=== PATIENT | male | born 1965 | race Caucasian/White ===

== ENCOUNTER 2018-10-10 09:40 | Emergency (ER) | payer SELFPAY ==
[~2018-10-10] VITALS: Ht 165.1 cm; Wt 68.4 kg
[2018-10-10 09:47] VITALS: Ht 165.1 cm; Wt 68.4 kg
[2018-10-10] MEDS ORDERED: LIDOCAINE 1% (MPF) 5 ML VIAL INFIL ONE (10:30)
[2018-10-10] MEDS ORDERED: SULF1TAB31 PO (11:13)
[2018-10-10] MEDS ORDERED: CEPH-443 PO (11:14)
[2018-10-10] MEDS ORDERED: IBUP-1542 PO (11:14)
--- NOTE | 2018-10-10 11:15 | ERD ---
ER Documentation Chief Complaint Chief Complaint ABSCESS TO POSTERIOR NECK, DRAINING. IN INTAKE HIGH BP. HPI 53 year old patient reports abscess to back of his neck x 1 week. He reports it is located midline back of his neck. He states the abscess is painful and oozing with white purulent discharge. He states the pain is sharp 9/10 intensity and constant. He denies any previous hx of similar incidence. He reports feeling hot 2 days ago but never recorded a fever. He is asking for a I&D today. In addition, he has blood pressure of 215/111 in triage. He denies previously being diagnosed with HTN but states he does not have a PCP and never goes to a doctor. He reports smoking hx. He denies taking medicine on a daily basis. He denies CP, SOB, abd pain, or any other symptoms. ROS All systems reviewed and are negative except as per history of present illness. Medications Home Meds Active Scripts Chlorthalidone* (Chlorthalidone*) 25 Mg Tablet, 25 MG PO DAILY, #30 TAB Prov:JEANINE REIS PA-C 10/10/18 Ibuprofen* (Motrin*) 600 Mg Tab, 600 MG PO Q6H PRN for PAIN AND OR ELEVATED TEMP, #30 TAB Prov:JEANINE REIS PA-C 10/10/18 Cephalexin* (Keflex*) 500 Mg Capsule, 500 MG PO BID for 7 Days, CAP Prov:JEANINE REIS PA-C 10/10/18 Sulfamethoxazole/Trimethoprim* (Bactrim Ds* Tablet) 1 Each Tablet, 1 TAB PO BID, #14 TAB Prov:JEANINE REIS PA-C 10/10/18 PMhx/Soc Medical and Surgical Hx: pt denies Medical Hx History of Surgery: Yes (LT EYE) Anesthesia Reaction: No Hx Neurological Disorder: No Hx Respiratory Disorders: No Hx Cardiac Disorders: No Hx Psychiatric Problems: No Hx Miscellaneous Medical Probl: No Hx Alcohol Use: Yes (DAILY) Hx Substance Use: No Hx Tobacco Use: Yes Smoking Status: Current every day smoker FmHx Family History: No diabetes Physical Exam Vitals Vital Signs Date Temp Pulse Resp B/P (MAP) Pulse Ox O2 O2 Flow FiO2 Time Delivery Rate 10/10/18 98.4 72 16 174/95 98 Room Air 11:45 (121) 7/6/19 98.1 83 18 215/111 98 09:47 (145) Physical Exam Const: No acute distress Head: Atraumatic Eyes: Normal Conjunctiva, PERRLA ENT: Normal External Ears, Nose and Mouth. Neck: Full range of motion. 1 inch abscess on neck midline. oozing with white purulent d/c, warm to touch, crusty Resp: Clear to auscultation bilaterally Cardio: Regular rate and rhythm, no murmurs Abd: Soft, non tender, non distended. Normal bowel sounds Skin: No petechiae or rashes Back: No midline or flank tenderness Ext: No cyanosis, or edema Neur: Awake and alert Psych: Normal Mood and Affect Results 24 hrs Current Medications Medications Dose Sig/Serena Start Time Status Last (Trade) Ordered Route PRN Stop Time Admin Dose Reason Admin Clonidine 0.1 mg ONCE ONCE 10/10/18 DC 10/10/18 (Catapres) PO 10:30 10/10/18 10:37 10:31 Lidocaine 5 ml ONCE ONCE 10/10/18 DC (Xylocaine INFIL 10:30 10/10/18 1% (Mpf)) 10:31 Procedures/MDM ED COURSE: The patient was stable throughout ED course. I kept the patient informed of laboratory and diagnostic imaging results throughout the ED course. DIAGNOSTIC IMAGING: None PROCEDURES: INCISION AND DRAINAGE: The patient was verbally consented prior to procedure. Patient was explained the risks, benefits and alternatives to this procedure. Location: neck midline Abscess size: 1 inch Anesthesia: local 1% lidocaine, 5 cc Preparation: The area was prepped in a sterile fashion using alcohol x5 cleanses. A sterile field was prepared. Technique: A sterile 11 blade scalpel was used to make a 1 cm linear incision into the abscess. Procedure: A midline abscess incision was made using a sterile scalpel in a linear fashion. Purulent material was expressed with direct pressure. Blunt probing was used to break up loculations. Bleeding was minimal. Packing: half iodoform packing was placed into the wound. The patient tolerated the procedure well with no complications. The wound was dressed in sterile gauze. The patient was neurovascularly intact post-procedure. Post-procedural wound care was discussed with the patient. MEDICATIONS GIVEN: Lidocaine, Clonidine Patient tolerated medication well with no adverse reactions. Patient reported improvement in pain. MEDICAL DECISION MAKING: Patient is a 53 year old male presenting with elevated BP and abscess. He denies having a PCP and states he does not go to the doctor so he has never been diagnosed with any medical conditions. He reports an abscess x 1 week that is located neck midline. The abscess is oozing and warm to touch. Pt asked for I&D which I performed without any complications. Abscess was packed and placed in antibacterial dressing. Pt was told to return back to ED in 2 days for a recheck. Pt was discharged with Keflex and Bactrim and Motrin. In addition, pt was given Clonidine and his BP was reduced down to 174/95. Patient was d/c with chlorthalidone and given numbers to [facility] in order to establish primary care. History & Physical and other data not c/w emergent process including deep tracking infection, sepsis, lymphangitis. Vital signs were reviewed. Patient is afebrile. Patient was not hypoxic. Patient was hemodynamically stable. Patient was told to follow up with primary care for further care and management. PRESCRIPTION: Keflex, Bactrim, motrin, chlorthalidone DISCHARGE: At this time, patient is stable for discharge and outpatient management. I have instructed the patient to follow-up with his/her primary care physician in 1-2 days. I have discussed with the patient the possibility of needing to see a specialist for further workup and imaging studies if symptoms persist. I have instructed the patient to promptly return to the ER for any new or worsening symptoms including increased pain, fever, nausea, vomiting, weakness or LOC. The patient expressed understanding of and agreement with this plan. All questions were answered. Home care instructions were provided. Disclaimer: Inadvertent spelling and grammatical errors are likely due to EHR/dictation software use and do not reflect on the overall quality of patient care. Also, please note that the electronic time recorded on this note does not necessarily reflect the actual time of the patient encounter. Departure Diagnosis: Primary Impression: Abscess Additional Impression: Hypertension Hypertension type: essential hypertension Qualified Codes: I10 - Essential (primary) hypertension Condition: Fair Patient Instructions: Abscess, Incision And Drainage Referrals: [facility] YOU HAVE RECEIVED A MEDICAL SCREENING EXAM AND THE RESULTS INDICATE THAT YOU DO NOT HAVE A CONDITION THAT REQUIRES URGENT TREATMENT IN THE EMERGENCY DEPARTMENT. FURTHER EVALUATION AND TREATMENT OF YOUR CONDITION CAN WAIT UNTIL YOU ARE SEEN IN YOUR DOCTORS OFFICE WITHIN THE NEXT 1-2 DAYS. IT IS YOUR RESPONSIBILITY TO MAKE AN APPOINTMENT FOR FOLOW-UP CARE. IF YOU HAVE A PRIMARY DOCTOR --you should call your primary doctor and schedule an appointment IF YOU DO NOT HAVE A PRIMARY DOCTOR YOU CAN CALL OUR PHYSICIAN REFERRAL HOTLINE AT IF YOU CAN NOT AFFORD TO SEE A PHYSICIAN YOU CAN CHOSE FROM THE FOLLOWING [facility] [address] [facility] [address] [facility] [facility] [address] [facility] [address] [facility] [address] [facility]. [facility] [address] [facility]. [facility] YOU HAVE RECEIVED A MEDICAL SCREENING EXAM AND THE RESULTS INDICATE THAT YOU DO NOT HAVE A CONDITION THAT REQUIRES URGENT TREATMENT IN THE EMERGENCY DEPARTMENT. FURTHER EVALUATION AND TREATMENT OF YOUR CONDITION CAN WAIT UNTIL YOU ARE SEEN IN YOUR DOCTORS OFFICE WITHIN THE NEXT 1-2 DAYS. IT IS YOUR RESPONSIBILITY TO MAKE AN APPOINTMENT FOR FOLOW-UP CARE. IF YOU HAVE A PRIMARY DOCTOR --you should call your primary doctor and schedule and appointment IF YOU DO NOT HAVE A PRIMARY DOCTOR YOU CAN CALL OUR PHYSICIAN REFERRAL HOTLINE AT . IF YOU CAN NOT AFFORD TO SEE A PHYSICIAN YOU CAN CHOSE FROM THE FOLLOWING [facility]: [facility] [address] [place] [address] [facility] [address] [place] [address] [facility] [address] [place] [address] Additional Instructions: Return back to this ED in 2 days for wound check Call 1 of the numbers in the packet to the community clinic in order to establish care with the primary care provider. Llame al doctor MAANA y mariella selena ERIN PARA DENTRO DE 1-2 [place].Dgale a la secretaria que nosotros le instruimos hacer esta erin.Avise o llame si hernandez condicin se empeora antes de la erin. Regresa aqui si peor o no mejor. JEANINE REIS PA-C Oct 10, 2018 11:15
[2018-10-10 11:45] VITALS: BP 174/95; PULSE 72; RESP 16
[2018-10-10] MEDS ORDERED: CHLO25TA2 PO (11:47)
== END 2018-10-10 12:01 | disposition home or self-care (01) ==
LOC: FTE 09:40
DX: L02.11 Cutaneous abscess of neck (principal); I10 Essential (primary) hypertension; F17.210 Nicotine dependence, cigarettes, uncomplicated